=== PATIENT | male | born 1960 | race Two or more races ===

== ENCOUNTER → 2018-03-30 16:34 | Outpatient (CLI) | payer OTHER ==
[~2018-03-30 16:34] MED LIST: CRESTOR; N
== END | disposition home or self-care (01) ==
LOC: LAB 16:34
DX: B95.61 Methicillin susceptible Staphylococcus aureus infection as the cause of diseases classified elsewhere (principal)

== ENCOUNTER 2018-06-09 07:28 | Outpatient (CLI) | payer OTHER | END 2018-06-09 15:22 | disposition home or self-care (01) | LOC: MRI 07:28 | DX: R22.1 Localized swelling, mass and lump, neck (principal) ==

== ENCOUNTER 2018-06-16 08:01 | Outpatient (CLI) | payer OTHER | END 2018-06-16 09:08 | disposition home or self-care (01) | LOC: TOM 08:01 | DX: E78.1 Pure hyperglyceridemia (principal); R31.29 Other microscopic hematuria; R22.1 Localized swelling, mass and lump, neck ==

== ENCOUNTER 2018-07-19 07:14 | Outpatient (CLI) | payer OTHER | END 2018-07-19 07:26 | disposition home or self-care (01) | LOC: RAD 07:14 | DX: Z01.818 Encounter for other preprocedural examination (principal) ==

== ENCOUNTER 2018-08-29 20:46 | Emergency (ER) | payer OTHER ==
[~2018-08-29] VITALS: Ht 188 cm; Wt 99.8 kg
[2018-08-29] MEDS ORDERED: SYNTHROID200 MCG PO (20:50)
== END 2018-08-29 22:00 | disposition home or self-care (01) ==
LOC: ER 20:46
DX: B30.3 Acute epidemic hemorrhagic conjunctivitis (enteroviral) (principal)

== ENCOUNTER 2020-10-22 11:18 | Outpatient (CLI) | payer OTHER ==
[~2020-10-22 11:18] MED LIST changes: +SYNTHROID200 MCG PO
== END 2020-10-22 11:29 | disposition home or self-care (01) ==
LOC: LAB 11:18
PROVIDERS: ATTEND Radiology Diagnostic Radiology
DX: E03.8 Other specified hypothyroidism (principal)

== ENCOUNTER 2020-10-24 08:13 | Outpatient (CLI) | payer OTHER | END 2020-10-24 08:28 | disposition home or self-care (01) | LOC: TOM 08:13 | DX: R10.84 Generalized abdominal pain (principal); E03.8 Other specified hypothyroidism; Z13.220 Encounter for screening for lipoid disorders; Z12.11 Encounter for screening for malignant neoplasm of colon; Z12.5 Encounter for screening for malignant neoplasm of prostate; Z13.1 Encounter for screening for diabetes mellitus ==

== ENCOUNTER → 2023-02-24 06:13 | Outpatient (CLI) | payer OTHER | END | disposition home or self-care (01) | LOC: LAB 06:13 | DX: E11.9 Type 2 diabetes mellitus without complications (principal) ==

== ENCOUNTER 2023-06-16 07:21 | Outpatient (CLI) | payer OTHER | END 2023-06-16 07:34 | disposition home or self-care (01) | LOC: TOM 07:21 | PROVIDERS: ATTEND General Practice | DX: R51.9 Headache, unspecified (principal); T79.9XXA Unspecified early complication of trauma, initial encounter; Z88.0 Allergy status to penicillin; Z88.1 Allergy status to other antibiotic agents ==

== ENCOUNTER 2023-08-05 07:23 | Outpatient (CLI) | payer OTHER ==
[2023-08-05 08:28] LABS: HEMATOCRIT 46.5 % (39.0-48.0); HEMOGLOBIN 15.9 g/dL (13-16.00); MEAN CORPUSCULAR HEMOGLOBIN 31.1 pg (27.00-32.0); MEAN CORPUSCULAR HGB CONC 34.1 g/dl (32.0-36.0); PLATELET COUNT 228 K/uL (150-450); RED BLOOD COUNT 5.11 M/uL (4.00-6.00); RED CELL DISTRIBUTION WIDTH 13.6 % (11.5-14.5)
[2023-08-05 09:12] LABS: ALBUMIN 3.7 gm/dL (3.4-5.0); BILIRUBIN TOTAL 0.56 mg/dL (0.3-1.2); CHOL HDL RATIO 6.1 (0-5.0); CREATININE SERUM 1.48 mg/dL (0.70-1.30); GFR 48.32; GLOBULINA 3.5 G/DL (2.4-3.5); POTASSIUM 4.62 mEq/L (3.5-5.1); T4 FREE 1.16 NG/ML (0.76-1.46); TOTAL PROTEIN 7.2 gm/dL (6.4-8.2)
[2023-08-05 09:17] LABS: TSH 4.93 uIU/mL (0.358-3.74)
== END 2023-08-05 07:39 | disposition home or self-care (01) ==
LOC: LAB 07:23
PROVIDERS: ATTEND General Practice
DX: E89.0 Postprocedural hypothyroidism (principal); E78.49 Other hyperlipidemia; Z76.0 Encounter for issue of repeat prescription; Z18.9 Retained foreign body fragments, unspecified material

== ENCOUNTER → 2024-02-03 07:08 | Outpatient (CLI) | payer OTHER ==
[2024-02-03 08:45] LABS: CHOL HDL RATIO 5.6 (0-5.0); T4 FREE 1.12 NG/ML (0.76-1.46); TSH 0.375 uIU/mL (0.358-3.74)
== END | disposition home or self-care (01) ==
LOC: LAB 07:08
PROVIDERS: ATTEND Internal Medicine Endocrinology, Diabetes & Metabolism
DX: E03.8 Other specified hypothyroidism (principal); E78.00 Pure hypercholesterolemia, unspecified

== ENCOUNTER 2024-02-03 08:43 | Outpatient (CLI) | payer OTHER | END 2024-02-03 08:45 | disposition home or self-care (01) | LOC: SONOGRAMA 08:43 | PROVIDERS: ATTEND Internal Medicine Endocrinology, Diabetes & Metabolism | DX: E04.8 Other specified nontoxic goiter (principal) ==

== ENCOUNTER 2024-06-02 06:24 | Outpatient (CLI) | payer OTHER ==
[2024-06-02 08:42] LABS: T4 FREE 1.16 NG/ML (0.76-1.46)
[2024-06-02 08:44] LABS: TSH 5.11 uIU/mL (0.358-3.74)
== END 2024-06-02 06:25 | disposition home or self-care (01) ==
LOC: LAB 06:24
PROVIDERS: ATTEND Internal Medicine Endocrinology, Diabetes & Metabolism
DX: E03.8 Other specified hypothyroidism (principal)

== ENCOUNTER → 2024-10-10 08:42 | Outpatient (CLI) | payer OTHER ==
[2024-10-10 09:19] LABS: HEMATOCRIT 50.3 % (39.0-48.0); HEMOGLOBIN 17.3 g/dL (13-16.00); MEAN CELL VOLUME 91.9 fL (80.0-100.00); MEAN CORPUSCULAR HEMOGLOBIN 31.7 pg (27.00-32.0); MEAN CORPUSCULAR HGB CONC 34.5 g/dl (32.0-36.0); PLATELET COUNT 231 K/uL (150-450); RED BLOOD COUNT 5.47 M/uL (4.00-6.00); RED CELL DISTRIBUTION WIDTH 13.6 % (11.5-14.5)
[2024-10-10 09:50] LABS: PH,URINE 5.5 (5.0-8.0); URINE APPEARANCE Clear; URINE BILIRRUBIN Negative (NEGATIVE); URINE BLOOD Negative; URINE COLOR Yellow; URINE GLUCOSE Negative (NEGATIVE); URINE KETONE Negative (NEGATIVE); URINE LEUKOCYTE Negative; URINE NITRATE Negative; URINE PROTEIN Trace (NEGATIVE); URINE UROBILINOGEN 0.2 E.U./dl
[2024-10-10 09:52] LABS: URINE BACTERIA 17.1 uL (0.0-1933); URINE EPITHELIAL CELLS 1.4 uL (0.0-38.8); URINE RBC 9.5 uL (0.0-20.8); URINE WBC 3.7 uL (0.0-23.2)
[2024-10-10 09:58] LABS: URINE CAST 0.14 uL (0.0-1.40)
[2024-10-10 10:26] LABS: ALBUMIN 3.6 gm/dL (3.4-5.0); BILIRUBIN TOTAL 0.53 mg/dL (0.3-1.2); CALCIUM 9.1 mg/dL (8.5-10.1); CHOL HDL RATIO 4.7 (0-5.0); CREATININE SERUM 1.27 mg/dL (0.70-1.30); GFR 57.28; GLOBULINA 3.9 G/DL (2.4-3.5); POTASSIUM 4.7 mEq/L (3.5-5.1); T4 FREE 1.33 NG/ML (0.76-1.46); TOTAL PROTEIN 7.5 gm/dL (6.4-8.2); TSH 1.64 uIU/mL (0.358-3.74)
[2024-10-10 10:35] LABS: PROSTATIC SPECIFIC ANTIGEN 13.5 NG/ML (0.010-4.00)
[2024-10-10 13:11] LABS: RH POSITIVE
[2024-10-11 09:06] LABS: % FREE PSA 15.5 % (.); free psa 1.99 ng/mL; total psa 12.8 ng/mL (0.0-4.0)
== END | disposition home or self-care (01) ==
LOC: LAB 08:42
PROVIDERS: ATTEND General Practice
DX: G47.9 Sleep disorder, unspecified (principal); R06.83 Snoring; E89.0 Postprocedural hypothyroidism; Z13.1 Encounter for screening for diabetes mellitus; I10 Essential (primary) hypertension; Z13.220 Encounter for screening for lipoid disorders; Z13.228 Encounter for screening for other metabolic disorders; Z12.5 Encounter for screening for malignant neoplasm of prostate; Z12.11 Encounter for screening for malignant neoplasm of colon

== ENCOUNTER 2024-10-12 06:29 | Outpatient (CLI) | payer OTHER ==
[2024-10-12 11:29] LABS: ob NEGATIVE (NEGATIVE)
== END 2024-10-12 06:32 | disposition home or self-care (01) ==
LOC: LAB 06:29
PROVIDERS: ATTEND General Practice
DX: G47.9 Sleep disorder, unspecified (principal); R06.83 Snoring; E89.0 Postprocedural hypothyroidism; Z13.1 Encounter for screening for diabetes mellitus; I10 Essential (primary) hypertension; Z13.220 Encounter for screening for lipoid disorders; Z13.228 Encounter for screening for other metabolic disorders; Z12.5 Encounter for screening for malignant neoplasm of prostate; Z12.11 Encounter for screening for malignant neoplasm of colon

== ENCOUNTER 2024-11-14 06:26 | Outpatient (CLI) | payer OTHER ==
[2024-11-14 07:28] LABS: URINE APPEARANCE Clear; URINE BILIRRUBIN Negative (NEGATIVE); URINE BLOOD Trace; URINE COLOR Yellow; URINE GLUCOSE Negative (NEGATIVE); URINE KETONE Negative (NEGATIVE); URINE LEUKOCYTE Negative; URINE NITRATE Negative; URINE PROTEIN Trace (NEGATIVE); URINE UROBILINOGEN 0.2 E.U./dl
[2024-11-14 07:30] LABS: URINE BACTERIA 6.1 uL (0.0-1933); URINE EPITHELIAL CELLS 1.8 uL (0.0-38.8); URINE RBC 7.2 uL (0.0-20.8)
[2024-11-14 07:41] LABS: URINE CAST 0.14 uL (0.0-1.40); URINE WBC 1.7 uL (0.0-23.2)
[2024-11-14 08:17] LABS: T4 FREE 1.29 NG/ML (0.76-1.46); TSH 2.68 uIU/mL (0.358-3.74)
[2024-11-15 09:12] LABS: % FREE PSA 15.9 % (.); free psa 1.53 ng/mL; total psa 9.6 ng/mL (0.0-4.0)
== END 2024-11-14 06:33 | disposition home or self-care (01) ==
LOC: LAB 06:26
PROVIDERS: ATTEND Internal Medicine Endocrinology, Diabetes & Metabolism
DX: R97.20 Elevated prostate specific antigen [PSA] (principal); E03.8 Other specified hypothyroidism

== ENCOUNTER 2024-11-14 07:29 | Outpatient (CLI) | payer OTHER | END 2024-11-14 07:39 | disposition home or self-care (01) | LOC: SONOGRAMA 07:29 | DX: R22.2 Localized swelling, mass and lump, trunk (principal); R94.6 Abnormal results of thyroid function studies; E89.0 Postprocedural hypothyroidism ==

== ENCOUNTER 2025-03-21 06:28 | Outpatient (CLI) | payer OTHER ==
[2025-03-21 07:19] LABS: BASO % 0.9 % (0.1-1.2); EOS # 0.11 (0.04-0.54); EOS % 2.0 % (0.7-7.0); LYMPH # 1.99 (1.18-3.74); LYMPH % 35.7 % (19.3-53.1); MEAN PLATELET VOLUME 9.10 fl (9.4-12.4); MONO # 0.32 (0.24-0.82); MONO % 5.7 % (4.7-12.5); NEUT # 3.10 (1.56-6.13); NEUT % 55.5 % (34.0-71.1); RED CELL DISTRIBUTION WIDTH 12.6 % (11.6-14.4)
[2025-03-21 07:44] LABS: INR 1.05
[2025-03-21 07:50] LABS: ALT/SGPT 23.0 U/L (12-78); AST/SGOT 11.0 U/L (15-37); BILIRUBIN TOTAL 0.72 mg/dL (0.3-1.2); BUN CREA RATIO 15.0 (7.0-25.0); CREATININE SERUM 1.29 mg/dL (0.70-1.30); GFR 56.25; GLOBULINA 4.1 G/DL (2.4-3.5); GLUCOSE FASTING 99.0 mg/dL (65-100); OSMOLALITY SERUM 287.0 MOSM/KG (275-295)
[2025-03-21 07:52] LABS: URINE APPEARANCE Clear; URINE BILIRRUBIN Negative (NEGATIVE); URINE BLOOD Trace; URINE COLOR Yellow; URINE GLUCOSE Negative (NEGATIVE); URINE KETONE Negative (NEGATIVE); URINE LEUKOCYTE Negative; URINE NITRATE Negative; URINE PROTEIN Trace (NEGATIVE); URINE UROBILINOGEN 0.2 E.U./dl
[2025-03-21 07:56] LABS: URINE RBC 8.0 uL (0.0-20.8); URINE WBC 3.5 uL (0.0-23.2)
[2025-03-21 08:28] LABS: URINE BACTERIA 2.3 uL (0.0-1933); URINE CAST 0.14 uL (0.0-1.40); URINE EPITHELIAL CELLS 0.4 uL (0.0-38.8)
== END 2025-03-21 06:37 | disposition home or self-care (01) ==
LOC: LAB 06:28
PROVIDERS: ATTEND Urology
DX: R97.20 Elevated prostate specific antigen [PSA] (principal); Z01.812 Encounter for preprocedural laboratory examination; Z01.818 Encounter for other preprocedural examination; D68.8 Other specified coagulation defects